=== PATIENT | male | born 1990 | race Caucasian/White ===

== ENCOUNTER 2021-05-26 10:00 | Outpatient (RCR) | payer OTHER, SELFPAY ==
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
--- NOTE | 2021-03-21 13:04 | PCPTNOTE ---
Patient called and states he will not be able to make it due to rides/childcare issues.
--- NOTE | 2021-03-29 14:40 | PCPTNOTE ---
Patient no show for apt this date. Called and left voicemail about missed apt and reminded of next apt and to call if he cannot make it in.
--- NOTE | 2021-03-31 13:20 | PCPTNOTE ---
Patient called and cancelled apt today.
--- NOTE | 2021-04-15 10:47 | PCPTNOTE ---
pt showed up at the wrong time today for his reevaluation, and was not able to come back at the scheduled time. Rescheduled reevaluation appointment.
--- NOTE | 2021-04-29 08:39 | PCPTNOTE ---
pt did not show for today's reeval; called pt and he had the wrong date for appt, thought it was 8th; Instructed him that he would have to call and reschedule if needed additional therapy.
--- NOTE | 2021-05-02 11:41 | PTOPEVAL ---
PHYSICAL THERAPY RE-EVALUATION AND UPDATED PLAN OF CARE 05-02-21 Refer to the clinical summary below for the status of today's reeval, compared to the initial evaluation. PT is to continue 1-2 x/week for 5 weeks, due to him having injections scheduled, plan is set for 1-2 x/wk. Thank you for referring Steve Avila to [facility].? Please review, sign, date and return this plan of care MOE. I agree with and certify that the following plan of care is medically necessary. Referring Physician Date Attending Provider: Nayeli Cruz NP Document 05/02/21 11:03 WILLIAMS (Rec: 05/02/21 11:41 WILLIAMS [id number]) Assessment Status Re-evaluation Subjective Information Steve reports: going to the Query Text:As Reported By Patient/ pain management dr for Family injections tomorrow; had first set of injections few weeks ago--it helped but only lasted so long; about 3-4 days later, was back to how usually was hurting; to get back brace from pain mgt dr office; with therapy-- electrical stim helped a little, traction and pulling hurt back; massage hellped some, for few days, then return; Pain Assessment Timing of Pain Assessment Timing of Pain Assessment Assessment Pain Scale Pain Scale Used Numeric (1 - 10) Self Report Pain Assessment Bilateral Spine, Lumbar Reported Pain Level 8 Pain Description Burning Radicular Pain Location L leg falls asleep and tingles if sit or stand too long and it is triggered Pain Frequency Chronic,Continuous Other Pain Description tail bone being stabbed and jabbed- almost in tears; Lowest Pain Intensity 8 Greatest Pain Intensity 8 Pain Aggravating Factors Exercise/Activity,Sitting, Walking Other Pain Aggravating Factors cannot lift laundry basket up; Additional Pain Comments L LE radicular pain down post leg to calf and toes Pain Score Pain Score 8: Self Report Additional Pain Score Comments Oswestry self assessment functional score 54% limitation in activity reported sitting tolerance 10- 15 min; with sleeping, awaken 3-4 #/night due to pain; walking tolerance 30 minutes, with shopping and
--- NOTE | 2021-05-16 13:59 | PCPTNOTE ---
pt called on phone and asked that his PT eval and reeval be faxed to his pain management dr: LUTHER phone # [phone]. I called and got the fax # [phone]; the 2 documents were faxed and when comes in for treatment tomorrow, he will sign the consent for release of info.
--- NOTE | 2021-05-31 09:14 | PCPTNOTE ---
Patient called & cancelled scheduled appointment this date due to not sleeping well last night.
--- NOTE | 2021-06-06 09:22 | PCPTNOTE ---
pt did not show for today's reevaluation; I called him, he had the wrong date, thought appt was Wed; rescheduled reeval, there were not any available times until 06-13; reeval to be on 06-13-21
--- NOTE | 2021-06-13 08:48 | PCPTNOTE ---
pt did not show for today's reeval;
--- NOTE | 2021-09-02 09:24 | PCPTNOTE ---
PHYSICAL THERAPY DISCHARGE 09-02-21 LATE ENTRY Attending Provider: Nayeli Cruz NP Patient:Steve Avila Date of :1990 Steve received 13 PT sessions from March 18 to June 02 for the diagnosis of lumbar radiculopathy. He called/canceled 2 and did not show for 5 appointments. The reevaluation was not performed, so goals were not assessed. Thank you for referring this patient to [facility]. Please review, sign, date and return this discharge summary MOE. I have been updated about the patient's current status and I agree with discharge from the above service at this time. Referring Physician Date
== END 2021-06-16 23:59 | disposition home or self-care (01) ==
LOC: ANHPT 10:00
PROVIDERS: PCP Nurse Practitioner; Visit Provider Nurse Practitioner
DX: M47.26 Other spondylosis with radiculopathy, lumbar region (principal)
CPT/HCPCS: 97012; 97014; 97110; 97140; 97161; 97530; G0283

== ENCOUNTER 2021-09-26 09:00 | Outpatient (RCR) | payer OTHER, SELFPAY ==
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
--- NOTE | 2021-08-16 07:26 | PCPTNOTE ---
Patient called & cancelled scheduled appointment this date due to not feeling well.
--- NOTE | 2021-08-17 09:59 | PCPTNOTE ---
Patient called & cancelled scheduled appointment this date due to being sick.
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
--- NOTE | 2021-10-10 09:30 | PCPTNOTE ---
Patient did not show up for scheduled appointment this date; called and stated to have forgotten about appointment was unable to come to anyways due to getting injection into hip. Reminded patient on next appointment October 25 @ 9pm.
--- NOTE | 2021-10-25 08:16 | PCPTNOTE ---
Patient called & cancelled scheduled appointment this date due to sick. Will contact pt regarding cancel/no show policy.
--- NOTE | 2021-10-25 09:34 | PCPTNOTE ---
Spoke with pt regarding his multiple missed therapy visits, discussed HEP and recommendations for cont performing to maintain level of function. Will plan to DC skilled therapy services at this time.
--- NOTE | 2021-10-25 09:35 | PCPTNOTE ---
Admitting Provider: Attending Provider: José Miguel Mcgraw, Patient:Steve Avila Date of :1990 Physical Therapy Discharge Summary Patient has not returned for any further treatments since 09/26/2021, therefore he will be discharged at this time. Patient?s initial visit was on 08/05/2021 14:30 and he had a total of 5 visits with 5 missed visits. The goals have been partially met at this time. He has been provided a HEP and able to perform indep. Thank you for referring this patient to [facility]. Please review, sign, date and return this discharge summary MOE. I have been updated about the patient's current status and I agree with discharge from the above service at this time. Referring Physician Date
== END 2021-10-25 11:49 | disposition home or self-care (01) ==
LOC: ANHPT 09:00
PROVIDERS: PCP Nurse Practitioner; Visit Provider Anesthesiology Pain Medicine
DX: M54.5 Low back pain (principal)
CPT/HCPCS: 97014; 97110; 97112; 97140; 97163; 97530; G0283